=== PATIENT | male | born 1990 | race African-American/Black ===

== ENCOUNTER 2016-05-30 10:32 | Emergency (ER) | payer SELFPAY ==
[~2016-05-30] VITALS: Ht 190.5 cm; Wt 78.0 kg
[2016-05-30 11:01] VITALS: BP 119/61
== END 2016-05-30 14:40 | disposition home or self-care (01) ==
LOC: ER 11:25
DX: J20.9 Acute bronchitis, unspecified (principal); F12.10 Cannabis abuse, uncomplicated
CPT/HCPCS: 71020; 99284

== ENCOUNTER 2024-05-07 15:20 | Emergency (ER) | payer MEDICAID ==
[~2024-05-07] VITALS: Ht 188 cm; Wt 100.0 kg
[2024-05-07 15:21] VITALS: O2SAT 98
[2024-05-07 15:52] VITALS: TEMP 37.1; O2SAT 100
[2024-05-07 18:38] VITALS: BP 118/65; PULSE 65; RESP 18
[2024-05-07] MEDS: KETOROLAC 30MG/ML VIAL IM ONE (18:38)
[2024-05-07] MEDS ORDERED: NAPR-1494 MT (18:50)
== END 2024-05-07 18:56 | disposition home or self-care (01) ==
LOC: ER 15:20
DX: S93.491A Sprain of other ligament of right ankle, initial encounter (principal); S43.492A Other sprain of left shoulder joint, initial encounter; Z79.1 Long term (current) use of non-steroidal anti-inflammatories (NSAID); X58.XXXA Exposure to other specified factors, initial encounter; Y93.89 Activity, other specified; Y92.89 Other specified places as the place of occurrence of the external cause; Y99.8 Other external cause status
CPT/HCPCS: 99284; 73030; 73630; 96372; J1885